=== PATIENT | male | born 1965 | race African-American/Black ===

== ENCOUNTER 2022-02-19 11:46 | Emergency (ER) | payer MEDICAID ==
[~2022-02-19] VITALS: Ht 175.3 cm; Wt 75.0 kg
[2022-02-19] MEDS ORDERED: SODIUM CHLORIDE 0.9% 1,000 ML IV ONE ×2 (12:00)
[2022-02-19] MEDS ORDERED: METOCLOPRAMIDE HCL 10MG/2ML VIAL IV ONE (12:30)
[2022-02-19 14:00] VITALS: BP 128/60
[2022-02-19 14:02] LABS: BASOPHILS % 0.7 % (0.0-2.0); EOSINOPHILS % 1.5 % (0.0-5.0); HEMATOCRIT. 37.2 % (42.0-52.0); HEMOGLOBIN. 11.9 g/dL (14.0-18.0); LYMPHOCYTES % 21.7 % (20.0-50.0); MEAN CORPUSCULAR HEMOGLOBIN 27.1 pg (28.0-32.0); MEAN CORPUSCULAR VOLUME 84.9 fL (80.0-94.0); MEAN PLATELET VOLUME 8.5 fl (7.4-10.4); MONOCYTES % 9.9 % (2.0-8.0); NEUTROPHILS % 66.2 % (40.0-76.0); PLATELET 359 x1000/uL (130-400); RED BLOOD CELL COUNT 4.38 mill/uL (4.7-6.1); RED CELL DISTRIBUTION WIDTH 13.1 % (11.6-14.6)
[2022-02-19 14:05] LABS: CHLORIDE 100 mEq/L (98-107)
[2022-02-19 14:12] LABS: ETHANOL BLOOD < 10 mg/dL
[2022-02-19] MEDS ORDERED: INSULIN LISPRO 100 UNITS/ML SUBCUT ONE (14:45)
[2022-02-19] MEDS ORDERED: INSULIN LISPRO 100 UNITS/ML SUBCUT NR (14:45)
[2022-02-19] MEDS ORDERED: METF-414 MT (15:50)
[2022-02-19] MEDS ORDERED: ONDA4TAB11 PO (15:51)
== END 2022-02-19 16:00 | disposition left against medical advice (07) ==
LOC: ER 12:08
DX: E11.65 Type 2 diabetes mellitus with hyperglycemia (principal); I49.9 Cardiac arrhythmia, unspecified; Z91.14 Patient's other noncompliance with medication regimen
CPT/HCPCS: 36415; 71045; 80053; 80320; 82962; 83690; 85025; 93005; 96361; 96372; 96374; 99285; J1815; J2765; J7030; Z7610; G0480